=== PATIENT | female | born 1990 | race Caucasian/White ===

== ENCOUNTER 2019-11-10 13:31 | Outpatient (CLI) | payer BC, SELFPAY ==
--- NOTE | ~2019-11-10 | MMUS_ITS ---
EXAMINATION: MM diagnostic susie LT w leti, US breast LT complete HISTORY: Left breast lump at 12-1:00 TECHNIQUE: ML, MLO and craniocaudal 3-D tomosynthesis images of the left breast were performed and sy nthetic 2-D images were generated. CAD analysis was submitted and interpreted. High resolution comple te left breast ultrasound was performed. COMPARISON: None BREAST PARENCHYMAL COMPOSITION: The breasts are heterogeneously dense, which may obscure small masses . FINDINGS: MAMMOGRAPHIC FINDINGS: No suspicious mass, architectural distortion, malignant calcification, skin thickening or retraction is evident. ULTRASOUND: At 11:00 4 cm from the nipple there is a parallel circumscribed hypoechoic 3.4 x 4.5 x 5.5 mm mass wi thout internal vascularity or suspicious shadowing. The sonographic features are most suggestive of b enign process. 6 month follow-up targeted ultrasound at this location is recommended. No solid mass or cyst or suspicious shadowing is detected elsewhere in the left breast. IMPRESSION: 1. Probable benign 3.4 x 4.5 x 5.5 mm mass of left breast at 11:00 4 cm from nipple 2. Six-month targeted left breast ultrasound follow-up at 11:00 is recommended. BI-RADS category 3, probably benign findings. Reviewed, dictated and finalized at location A. IMPRESSION: 1. Probable benign 3.4 x 4.5 x 5.5 mm mass of left breast at 11:00 4 cm from ni pple 2. Six-month targeted left breast ultrasound follow-up at 11:00 is recommended. BI-RADS category 3, probably benign findings.
== END 2019-11-10 13:32 | disposition home or self-care (01) ==
LOC: ANHIMG 13:36
PROVIDERS: PCP Family Medicine; Visit Provider Family Medicine
DX: N63.20 Unspecified lump in the left breast, unspecified quadrant (principal)
CPT/HCPCS: 76641; 77061; 77065; G0279

== ENCOUNTER 2020-11-15 05:09 | Inpatient (IN) | payer OTHER, SELFPAY ==
[2020-11-15] VITALS (103 sets, daily range): BP systolic 90–146; BP diastolic 46–94; PULSE 69–147; RESP 13–14; TEMP 36.4–37.4; O2SAT 98–100; BMI 29.9
[2020-11-15 06:54] LABS: Basophils Percent Auto 0.2 % (0.2-1.2); Eosinophils Absolute Auto 0.1 K/mm3 (0-0.3); Eosinophils Percent Auto 0.7 % (0-4.4); Hematocrit 28.9 % (37.0-47.0); Hemoglobin 9.3 g/dL (12.0-15.0); Immature Granulocyte Absolute 0.08 K/mm3 (0.00-0.031); Immature Granulocyte Percent A 0.9 % (0-0.5); Lymphocytes Absolute Auto 2.18 K/mm3 (0.9-3.2); Lymphocytes Percent Auto 24.2 % (18.3-44.2); Mean Corpuscular HGB Conc 32.2 g/dl (32-36); Mean Corpuscular Hemoglobin 28.4 pg (26-34); Mean Corpuscular Volume 88.4 fl (80-100); Mean Platelet Volume 9.3 fl (7.4-10.4); Monocytes Absolute Auto 0.7 K/mm3 (0.1-0.6); Monocytes Percent Auto 7.8 % (2.6-8.5); Neutrophils Percent Auto 66.2 % (45.5-73.1); Platelet Count Result 294 k/mm3 (150-375); Red Blood Count 3.27 M/mm3 (4.2-5.4)
[2020-11-15] MEDS: LACTATED RINGERS 1,000 ML 125 ML IV CONT (07:21)
[2020-11-15] MEDS: OXYTOCIN 30 UNITS/NS 500 ML 30 UNITS/500 ML BAG IV CONT (07:24)
--- NOTE | 2020-11-15 07:37 | LDADM ---
This patient, Odalys Gamino, was admitted to Labor/Delivery/Recovery 101 on 11/15/20 at 05:09. Plans for labor, pain management and were discussed with patient. Patient/family oriented to hospital policies and general routines including ID bracelet, bed and alarms, visiting hours, pain management, procedures, bathroom and other care routines, personal items, smoking policy, room service/diet and guest tray routines, infant security routines, and visiting hours. Patient/Family are encouraged to report perceived risks to care and to ask questions if they do not understand what they are told or what they should do. See OBIX for further documentation.
--- NOTE | 2020-11-15 08:04 | WPDOBADMIT ---
Obstetrics - Admit Note Admission Note: record reviewed. Additions to the history and/or subsequent changes in the physical findings follow. 29 y/o at 39 1/7 weeks here desiring induction of labor. GBS neg. Has quit smoking cigarettes in this with Wellbutrin. UDS pos for THC, and I advised her to stop using marijuana. GCT normal. A+, RI, HepBSAg neg, RPR neg, HIV neg. AVSS NST reactive TOCO: rare contractions ABD soft, nontender, gravid, vertex EXT nontender Cervix 3/50/-2. Vertex. AROM with clear fluid. A: IUP at term with favorable cervix, desiring induction of labor. P: Oxytocin. Anticipate .
[2020-11-15 08:33] LABS: Amphetamine Screen Urine Negative (Negative); Barbiturate Screen Urine Negative (Negative); Benzodiazepines Screen Urine Negative (Negative); Cannabinoid Screen Urine Positive (Negative); Cocaine Screen Urine Negative (Negative); Methadone Screen Urine Negative (Negative); Opiate Screen Urine Negative (Negative); Phencyclidine Screen Urine Negative (Negative)
[2020-11-15 08:57] LABS: Rapid Plasma Reagin Non-Reactive (NonReactive)
--- NOTE | 2020-11-15 12:00 | PM.OBPNLAB ---
Pain Control Date/time seen: 11/15/20 1200 Comments: Epidural was just placed. Starting to give some relief. Pelvic Exam Dilation (cm): 5 Effacement (%): 50 station: -1 Contractions Contraction frequency: 3 Contraction pattern: Regular Status status: Category l Assessment and Plan Plan: continuous present management
--- NOTE | 2020-11-15 12:41 | WPDANESEPP ---
Anes - Eval Pre Procedure Procedure: Labor Epidural Date/Time: 11/15/20 12:41 Surgeon: Leilani Preop Diagnosis: Labor pain Pre Op Diagnosis: IOL Patient Data Age: 29 Gender: F Height: 5 ft 1 in Weight: 71.82 kg Last Vital Signs Temp 37.0 C 11/15/20 10:37 Pulse 92 11/15/20 12:34 BP 118/68 11/15/20 12:34 Pulse Ox 100 11/15/20 12:38 Allergies Allergy/AdvReac Type Severity Reaction Status Date / Time melatonin Allergy Severe THROAT Verified 10/25/20 12:34 SWELLS red dye Allergy Intermediate VOMITING,HI Verified 10/25/20 12:34 VES Home Medications Medication Instructions Recorded Confirmed Type ferrous sulfate 1 tablet PO QAM 10/25/20 11/15/20 History prenat.vits,mitul,pro-pbjj-syvxo 1 tablet PO DAILY 10/25/20 10/25/20 History [ #2] Laboratory Tests 11/15/20 11/15/20 11/15/20 06:37 06:37 06:37 WBC 9.0 K/mm3 K/mm3 (4.5-10.0) RBC 3.27 M/mm3 L M/mm3 (4.2-5.4) Hgb 9.3 g/dL L g/dL (12.0-15.0) Hct 28.9 % L % (37.0-47.0) MCV 88.4 fl fl (80-100) MCH 28.4 pg pg (26-34) MCHC 32.2 g/dl g/dl (32-36) RDW 14.0 % % (11.5-14.5) Plt Count 294 k/mm3 k/mm3 (150-375) MPV 9.3 fl fl (7.4-10.4) Immature Gran % (Auto) 0.9 % H % (0-0.5) Neut % (Auto) 66.2 % % (45.5-73.1) Lymph % (Auto) 24.2 % % (18.3-44.2) [place] % (Auto) 7.8 % % (2.6-8.5) Eos % (Auto) 0.7 % % (0-4.4) Baso % (Auto) 0.2 % % (0.2-1.2) Lymph # (Auto) 2.18 K/mm3 K/mm3 (0.9-3.2) [place] # (Auto) 0.7 K/mm3 H K/mm3 (0.1-0.6) Eos # (Auto) 0.1 K/mm3 K/mm3 (0-0.3) Baso # (Auto) 0.0 K/mm3 K/mm3 (0.0-0.1) Abs Immat Gran (auto) 0.08 K/mm3 H K/mm3 (0.00-0.031) Absolute Neuts (auto) 6.0 K/mm3 K/mm3 (1.3-6.7) Absolute Nucleated RBC 0.0 K/mm3 K/mm3 (0.0-0.012) Nucleated RBC % 0.0 % % (0.0-0.2) Urine Opiates Screen Urine Methadone Screen Ur Barbiturates Screen Ur Phencyclidine Scrn Ur Amphetamine Screen U Benzodiazepines Scrn Urine Cocaine Screen U Cannabinoids Screen RPR Non-reactive (NonReactive) Blood Type A Positive Antibody Screen Negative 11/15/20 08:04 WBC RBC Hgb Hct MCV MCH MCHC RDW Plt Count MPV Immature Gran % (Auto) Neut % (Auto) Lymph % (Auto) [place] % (Auto) Eos % (Auto) Baso % (Auto) Lymph # (Auto) [place] # (Auto) Eos # (Auto) Baso # (Auto) Abs Immat Gran (auto) Absolute Neuts (auto) Absolute Nucleated RBC Nucleated RBC % Urine Opiates Screen Negative (Negative) Urine Methadone Screen Negative (Negative) Ur Barbiturates Screen Negative (Negative) Ur Phencyclidine Scrn Negative (Negative) Ur Amphetamine Screen Negative (Negative) U Benzodiazepines Scrn Negative (Negative) Urine Cocaine Screen Negative (Negative) U Cannabinoids Screen Positive A (Negative) RPR Blood Type Antibody Screen : gestational age (LYLE 11/21/20) Patient hx anesthesia problems: none Family hx anesthesia problems: none [facility] Past Medical History Medical History Hyperthyroidism 5-12-20 lab normal ( negative antibodies/ normal TSH/clinically euthymic - all off meds) Nexplanon in place Nexplanon removal 11.09.19 Family History Family History Grandparent Cataract Pancreas cancer Diabetes mellitus Father Acute myocardial infarction Diabetes mellitus Mother H/O oophorectomy Benign breast
--- NOTE | 2020-11-15 15:10 | PM.OBPRVD ---
OB - Delivery Note Procedure Delivery date: 11/15/20 Procedure: Induction of labor with Induction method: per pitocin protocol Delivery augmentation: rupture of membranes and pitocin Delivery monitor: external FHT and external uterine Route of delivery: Laceration Description: Perineal - 1st Degree Delivery repair: vicryl (3-0) Specimen: Yes (cord blood) Quantitative Blood Loss (ml): 85 Anesthesia type: Epidural Disposition: PACU Complications: None Narrative: 29 y/o at 39 1/7 weeks gestation who presented to the hospital for induction of labor. Oxytocin was administered intravenously. Amniotomy was performed with return of clear fluid. She received an epidural for pain control. Her labor progressed and her cervix dilated completely. She pushed with good effort and delivered the 's head to the perineum, followed by the body. The nose and mouth were bulb suctioned. After a delay, the cord was clamped and cut. The infant was handed off the field. Cord blood was collected. The placenta delivered spontaneously and was grossly normal in appearance. The usual 3 vessel cord was noted. A first degree midline perineal laceration was sustained. This was reapproximated using 3 0 Vicryl in two interrupted figure of eight stitches. Excellent hemostasis resulted as did excellent reapproximation of the normal anatomy. Needle and instrument counts were correct. The patient was taken to recovery room in stable condition. The went to the nursery in stable condition. I was present and scrubbed for the entire delivery. [place] Baby Date of : 11/15/20 Time of : 14:52 Weeks of gestation at delivery: 39 gender: Male Weight (pounds): 7 Weight (ounces): 8 presentation: vertex position: Left Occiput Anterior Placenta delivery description: Spontaneous and Normal Configuration cord vessel description: 3 Vessels, Nuchal Cord and Delayed Cord Clamping score one minute: 8 score five minutes: 9
--- NOTE | 2020-11-15 15:12 | PM.OBDSVD ---
DS: Admitting Diagnosis Admitting Diagnosis Admitting Diagnosis: IUP at 39 1/7 weeks Favorable cervix DS: Discharge Diagnosis Discharge Diagnosis (1) (normal spontaneous vaginal delivery): Code(s): O80 - Encounter for full-term uncomplicated delivery Status: Acute OB - DS: Summary OB Procedures : None OB Procedures Intrapartum: Spontaneous Vag Delivery OB Procedures: : None DS: Data Data Completed and Pending Labs on day of discharge: Labs from last 24 hours 11/15/20 11/15/20 11/15/20 08:04 06:37 06:37 WBC RBC Hgb Hct MCV MCH MCHC RDW Plt Count MPV Immature Gran % (Auto) Neut % (Auto) Lymph % (Auto) [place] % (Auto) Eos % (Auto) Baso % (Auto) Lymph # (Auto) [place] # (Auto) Eos # (Auto) Baso # (Auto) Abs Immat Gran (auto) Absolute Neuts (auto) Absolute Nucleated RBC Nucleated RBC % Urine Opiates Screen Negative Urine Methadone Screen Negative Ur Barbiturates Screen Negative Ur Phencyclidine Scrn Negative Ur Amphetamine Screen Negative U Benzodiazepines Scrn Negative Urine Cocaine Screen Negative U Cannabinoids Screen Positive A RPR Non-reactive Blood Type A Positive Antibody Screen Negative 11/15/20 06:37 WBC 9.0 RBC 3.27 L Hgb 9.3 L Hct 28.9 L MCV 88.4 MCH 28.4 MCHC 32.2 RDW 14.0 Plt Count 294 MPV 9.3 Immature Gran % (Auto) 0.9 H Neut % (Auto) 66.2 Lymph % (Auto) 24.2 [place] % (Auto) 7.8 Eos % (Auto) 0.7 Baso % (Auto) 0.2 Lymph # (Auto) 2.18 [place] # (Auto) 0.7 H Eos # (Auto) 0.1 Baso # (Auto) 0.0 Abs Immat Gran (auto) 0.08 H Absolute Neuts (auto) 6.0 Absolute Nucleated RBC 0.0 Nucleated RBC % 0.0 Urine Opiates Screen Urine Methadone Screen Ur Barbiturates Screen Ur Phencyclidine Scrn Ur Amphetamine Screen U Benzodiazepines Scrn Urine Cocaine Screen U Cannabinoids Screen RPR Blood Type Antibody Screen Discharge Plan Discharge Attending physician on discharge: Mario Duke Discharging Clinician: Mario Duke Patient Disposition: Home, Self-Care Activity: pelvic rest Diet: regular Discharge Instructions: Call or return if temperature above 100.4? F, increased abdominal pain, increased vaginal bleeding or any new problems. Stand Alone Forms: General Discharge Information Follow-up/Referrals: Mario Duke MD [Physician] - 6 Weeks Discharge Medications: New ibuprofen 600 mg tablet 600 mg PO Q6H PRN (Reason: cramps) Qty: 30 RF: 0 Niferex (Sumalate-Quatrefolic) 150 mg iron- 60 mg-1 mg tablet 1 tablet PO DAILY Qty: 30 RF: 0 No Action #2 Tablet 1 tablet PO DAILY RF: 0 ferrous sulfate tablet 1 tablet PO QAM RF: 0 Date of admission: 11/15/20 05:09 Primary Care Provider: Latasha Herrera Admitting Provider: Mario Duke Attending physician on admission: Mario Duke Condition: Stable
[2020-11-15] MEDS: WITCH HAZEL 40 PADS 1 PAD TOPICAL (17:37)
[2020-11-15] MEDS: BENZOCAINE 20% AER SPR (*SP) 56 GM CAN 1 SPRAY TOPICAL (17:38)
[2020-11-15] MEDS: IBUPROFEN 600 MG TABLET PO (18:50)
[2020-11-16] MEDS: IBUPROFEN 600 MG TABLET PO ×3 (03:48→17:34)
[2020-11-16 03:50] VITALS: BP 113/78; PULSE 65; RESP 14; TEMP 36.4; O2SAT 100
[2020-11-16 05:49] LABS: Hematocrit 27.5 % (37.0-47.0); Hemoglobin 8.7 g/dL (12.0-15.0)
[2020-11-16 07:30] VITALS: PULSE 81; RESP 18; O2SAT 98
[2020-11-16 08:00] VITALS: BP 140/90; PULSE 81; RESP 18; TEMP 36.3; O2SAT 98
[2020-11-16] MEDS: MULTIVIT/MIN/PREN/FOL AC/IRON TABLET 1 TAB PO (10:30)
[2020-11-16] MEDS: FERROUS SULFATE 324 MG TABLET PO ×2 (10:30→17:34)
--- NOTE | 2020-11-16 11:13 | PCCCNOTE ---
Addendum entered by NESTOR Michaels 11/16/20 15:17: Received notification that DCFS will not take a report. Original Note: Care Coordination Note: Met with pt. and STEPHEN Patricio. Pt. lives at home with Patricio and has one additional child. Patricio also has one other child he shares custody of. Pt. has supportive family. resources provided. Pt. declines the need for WIC services. Has all necessary belongings at home for baby including a bassinet, car seat, clothing, diapers etc. Pt. has supportive family including Patricio. Pt. up front with marijuana use, reports she used marijuana medicinally through for nausea. Pt. aware baby urine tested negative for all substances, meconium is pending. Pt. declines a reliance on marijuana and states she will discontinue using at discharge as she reports she would like to try to breast feed. Pt. denies any other substance use. DCFS report was filed with ID number [id number], awaiting determination. Pt. is hopeful to discharge this afternoon. Pt. and family deny any further case management needs.
[2020-11-16 11:30] VITALS: BP 121/79; PULSE 92; RESP 18; TEMP 36.9; O2SAT 100
--- NOTE | 2020-11-16 12:10 | PC.NURSE ---
Mother called out for assist with feeding. Mother reports tenderness with feedings. Mother has infant latched shallow in football positioning. Suggested mother release latch and attempt with cross cradle. Both nipples are reddened and excoriated to tip. Reviewed infant feeding cues, frequencies, duration of feedings, feeding elimination flow sheet, and signs of adequate intake. Demonstrated stimulation techniques to wake infant for feeding. Assisted with to breast. Reviewed positioning/alignment in cross cradle, holding breast in ?U? hold and guided asymmetrical latch on. able to latch correctly. Infant nursed eagerly, with steady draws and frequent swallowing noted. Reviewed signs of a correct latch, effective nursing and suck swallow ratio. Mother reports she can feel change in latch and has much less tenderness. was able to maintain latch without discomfort to mother. Demonstrated how to adjust latch more deeply while feeding. Nipple care reviewed of lanolin after feedings, warm compresses as needed. Advised to hold breast during entire feeding to assist maintain deep latch. Discussed to soften before latching when her milk comes in. Suggested mother stimulate while feeding to increase stimulation and increase intake. Mother states she wishes to be discharged at 24 hours. Mother is feeding as required and waking infant to feed if needed. Infant is feeding as required with several effective feedings in the past 24 hours, and is currently meeting outcomes for weight, output, jaundice and feeding frequencies. Mother states she feels confident to continue effective /supplementation by choice at home. Reviewed transition to breast milk, signs of adequate intake, and engorgement/relief. Instructed to call ICP if intake/output less than required. Reviewed regular medications mother is taking. Information provided per [facility]. Reviewed community resources on the [facility] website and in the Mom/Baby guide. Information on outpatient services provided. Mother has no further questions at this time.
--- NOTE | 2020-11-16 13:11 | PM.OBPNVD ---
OB - PN: Subj Subjective Date/time seen: 11/16/20 13:11 Narrative: Pain OK. Desires circumcision for son. Would like to go home. OB - PN: Obj Data Labs CBC & Chem 7: 11/16/20 03:56 Labs: Laboratory Results - last 24 hr 11/16/20 03:56 Hgb 8.7 L Hct 27.5 L OB - PN A/P Plan Comments: A: PPD#1, doing well. P: Reviewed circumcision. Home to f/u 6 weeks. Exam Psych: Other: AVSS ABD soft, nontender, fundus firm EXT nontender
[2020-11-16 13:30] VITALS: PULSE 92; RESP 18; O2SAT 100
--- NOTE | 2020-11-16 15:48 | WPDANLDPN2 ---
Anes-Prog Note L&D Date/Time: 11/16/20 15:48 Comfortable throughout: labor and delivery Neuraxial method: epidural Epidural/Spinal procedure site: clean & non-tender Neuro status: Neuro function grossly intact. Cardiovascular status: normal Respiratory status: normal Airway patency: baseline Mental status: baseline Post-Op hydration status: normal Vital Signs: Last Vital Signs Temp 36.9 C 11/16/20 11:30 Pulse 92 11/16/20 11:30 Resp 18 11/16/20 11:30 BP 121/79 11/16/20 11:30 Pulse Ox 100 11/16/20 11:30 Pain score (VAS): 0/10. Patient resting in bed at time of assessment, appears comfortable. Support person at bedside. I/O: Intake & Output 11/15/20 11/16/20 11/16/20 23:59 07:59 15:59 Intake Total 240 Balance 240 Post-procedural complaints: none Patient feedback: Patient satisfied with anesthetic care.
--- NOTE | 2020-11-16 16:02 | PC.NURSE ---
Patient viewed the discharge video Mother & Baby Care, The First Two Weeks . Patient was given the opportunity and encouraged to ask questions. Patient verbalized understanding of information shared and has been given the mother/baby guide for home reference.
[2020-11-17 07:53] VITALS: BP 126/79; PULSE 90; RESP 16; TEMP 36.8; O2SAT 100
== END 2020-11-16 20:20 | disposition home or self-care (01) | DRG 807 ==
LOC: ANHLDR 15:13 → ANHOB2 17:54
PROVIDERS: Admitting Provider Obstetrics & Gynecology; PCP Family Medicine; Visit Provider Obstetrics & Gynecology
DX: O99.324 Drug use complicating childbirth (principal); Z37.0 Single live birth; Z3A.39 39 weeks gestation of pregnancy; F12.90 Cannabis use, unspecified, uncomplicated; O70.0 First degree perineal laceration during delivery
CPT/HCPCS: 36415; 80307; 85014; 85018; 85025; 86592; 86850; 86900; 86901; A9270; J2590; J2795; J7120